=== PATIENT | male | born 1960 | race Caucasian/White ===

== ENCOUNTER 2018-09-10 09:37 | Inpatient (IN) | payer SELFPAY ==
[~2018-09-10] VITALS: Ht 182.9 cm; Wt 126.6 kg
--- NOTE | 2018-09-10 09:46 | NUR ---
PT BIB RA [facility] FROM HOME, GLF BECAUSE OF WEAKNESS, PT IS AAOX4, NOT IN RESPIRATORY DISTRESS, HOOKED TO MONITOR, KEPT RESTED AND COMFORTABLE, WILL CONTINUE TO MONITOR.
--- NOTE | 2018-09-10 09:50 | NUR ---
IV LINE ESTABLISHED, BLOOD DRAWNED AND SENT TO LAB.
--- NOTE | 2018-09-10 09:57 | NUR ---
DR. EPSTEIN AT BEDSIDE FOR EVAL.
[2018-09-10 10:15] LABS: BASOPHILS % (AUTO) 0.7 % (0.0-2.0); EOSINOPHILS % (AUTO) 0.6 % (0.0-6.0); HEMOGLOBIN 7.3 g/dL (13.5-17.5); LYMPHOCYTES # (AUTO) 0.9 /CMM (0.8-4.8); LYMPHOCYTES % (AUTO) 13.4 % (20.0-44.0); MEAN CORPUSCULAR HGB CONC 36 g/dl (31.0-36.0); MEAN CORPUSCULAR VOLUME 114 fL (80-96); MONOCYTES # (AUTO) 0.8 /CMM (0.1-1.30); NEUTROPHILS # (AUTO) 4.7 /CMM (1.8-8.9); NEUTROPHILS % (AUTO) 72.3 % (43.0-81.0); PLATELET COUNT (AUTO) 73 /CMM (150-450); WHITE BLOOD COUNT (AUTO) 6.5 K/uL (4.3-11.0)
[2018-09-10 10:18] LABS: RED BLOOD CELL COUNT(AUTO) 1.75 MIL/uL (4.5-6.0)
[2018-09-10] MEDS ORDERED: MORPHINE SULFATE INJ 4 MG/ML DISP.SYRIN ONE (10:18)
[2018-09-10 10:19] LABS: HEMATOCRIT 20 % (39-51)
--- NOTE | 2018-09-10 10:20 | NUR ---
PT IS WHEELED TO CT SCAN VIA [facility].
[2018-09-10 10:24] LABS: CALCIUM, SERUM 9.2 mg/dL (8.5-10.1); CARBON DIOXIDE 26 mmol/L (21-32); CHLORIDE 102 mmol/L (98-107); CREATININE 1.5 mg/dL (0.6-1.3); GLUCOSE 102 mg/dL (74-106); POTASSIUM 3.6 mmol/L (3.5-5.1); SODIUM SERUM 137 mmol/L (136-145); UREA NITROGEN, BLOOD 28 mg/dL (7-18)
[2018-09-10] MEDS ORDERED: MORPHINE SULFATE INJ 2 MG/ML DISP.SYRIN IV ONE (10:30)
[2018-09-10 10:35] LABS: SERUM AMMONIA 84 umol/L (11-32)
[2018-09-10 10:43] LABS: ALANINE AMINOTRANSFERASE 20 U/L (12-78); ALBUMIN 1.6 g/dL (3.4-5.0); ALCOHOL, BLOOD < 3 mg/dL (0-0); ALKALINE PHOSPHATASE 80 U/L (46-116); ASPARTATE AMINOTRANSFERASE 50 U/L (15-37); BILIRUBIN,DIRECT 4.4 mg/dL (0.0-0.2); BILIRUBIN,TOTAL 12.2 mg/dL (0.2-1.0)
[2018-09-10] MEDS ORDERED: FURO40TA5 PO (10:46)
[2018-09-10] MEDS ORDERED: SPIR100T5 PO (10:46)
--- NOTE | 2018-09-10 10:55 | NUR ---
TECH AT BEDSIDE FOR US.
[2018-09-10 11:05] LABS: LYMPHOCYTES % (MANUAL) 6 % (16-48); MONOCYTES % (MANUAL) 9 % (0-11.0); NEUTROPHILS % (MANUAL) 85 (42-76)
--- NOTE | 2018-09-10 12:00 | NUR ---
TELE BED 315-2
--- NOTE | 2018-09-10 12:25 | NUR ---
REPORT GIVEN TO SYLVAIN KATHLEEN FOR WENDY.
[2018-09-10] MEDS ORDERED: LACTULOSE 10 G/15 ML UDC (PYXIS) PO PRN (13:00)
--- NOTE | 2018-09-10 13:04 | NUR ---
PAGED ROSALIE SHEN
[2018-09-10] MEDS ORDERED: MAGNESIUM HYDROXIDE 30 ML UDC PO PRN (13:30)
[2018-09-10] MEDS ORDERED: Z GUARD REMEDY 2 OZ OINT TP PRN (13:30)
[2018-09-10] MEDS ORDERED: ONDANSETRON HCL/PF 4 MG/2 ML VIAL IVP PRN (13:30)
[2018-09-10] MEDS ORDERED: MAG HYDROX/AL HYDROX/SIMETH 30 ML UDC PO PRN (13:30)
[2018-09-10] MEDS ORDERED: FUROSEMIDE 20 MG/2 ML VIAL IV SCH (13:30)
[2018-09-10] MEDS ORDERED: FUROSEMIDE 40 MG/4 ML VIAL ONE (13:34)
[2018-09-10] MEDS: LACTULOSE 10 G/15 ML UDC (PYXIS) PO SCH ×2 (13:49→18:54)
[2018-09-10 15:24] LABS: APPEARANCE,URINE SL CLOUDY (CLEAR); BILIRUBIN,URINE 2+ (NEGATIVE); BLOOD, URINE 3+ Ery/uL (NEGATIVE); COLOR,URINE BROWN (YELLOW); KETONES,URINE TRACE (NEGATIVE); LEUKOCYTE ESTERASE ,URINE TRACE (NEGATIVE); NITRITE, URINE NEGATIVE (NEGATIVE); PROTEIN,URINE TRACE mg/dl (NEGATIVE); UGLUCOSE NEGATIVE (NEGATIVE)
--- NOTE | 2018-09-10 15:34 | NUR ---
MS NARAYAN NOTES Called pharmacy and followed up on Albumin IV. Spoke to Heidi. MARQUIS on the way. Addendum: 09/10/18 at 1628 by OTIS LOPEZ RN Received medications. Will administer now
[2018-09-10 15:42] LABS: CREATININE, URINE 51.7 MG/DL (30.0-125.0)
[2018-09-10 15:44] LABS: BACTERIA,URINE Few /HPF (None Seen); RBC,URINE 51-80 /HPF (0-2); SQUAMOUS EPITHELIAL CELL,UR None Seen /HPF (None Seen); WBC,URINE 0-2 /HPF (0-3)
--- NOTE | 2018-09-10 15:45 | NUR ---
MS RN NOTES Reported 2nd draw critical labs results to Storm Nielsen with new order to consult with Hematology. Dr. Miller came to assess and interview patient.
[2018-09-10 16:00] VITALS: BP 123/59
[2018-09-10] MEDS: FUROSEMIDE 40 MG/4 ML VIAL IV SCH (16:32)
[2018-09-10] MEDS: ALBUMIN 25% 25 GM in PREMIX 1 EA IV SCH ×2 (16:32→21:30)
--- NOTE | 2018-09-10 16:32 | NUR ---
MS RN NOTES BP 134/97
[2018-09-10 17:03] LABS: EOSINOPHIL,URINE None Seen
[2018-09-10] MEDS ORDERED: diphenhydrAMINE HCL 50 MG/ML VIAL IV ONE (18:00)
[2018-09-10] MEDS ORDERED: ACETAMINOPHEN 325 MG TABLET PO ONE (18:00)
[2018-09-10] MEDS ORDERED: PHYTONADIONE INJ 10 MG/1 ML AMPUL SQ ONE (18:00)
[2018-09-10] MEDS: FOLIC ACID 1 MG TABLET PO SCH (18:57)
--- NOTE | 2018-09-10 19:00 | NUR ---
RN MS OPENING NOTES RECEIVED PATIENT IN BED AWAKE ALERT AND ORIENTED X3, RESPIRATIONS EVEN AND UNLABORED WITH EQUAL RISE AND FALL OF CHEST, DENIES ANY PAIN OR DISCOMFORT AT THIS TIME, S/B ID MD CERDA, WITH NEW ORDERS FOR ABX, ALSO S/B MD OAKLEY WITH NEW ORDER TO TRANSFUSE 4 FFP. EXPLAINED TO FAMILY AND PATIENT , BOTH AGREED CONSENTS SIGNED. ASPIRATION PRECAUTIONS IN PLACE, NPO STATUS AT THIS TIME, NOTED BLE EDEMA NON PITTING, NOTES SKIN JUANDICED COLORED, URINAL AT BEDSIDE WITHIN REACH, RIGHT AC #20 G INTACT AND PATENT, NO REDNESS, NO INFILTRATION PRESENT,SAFETY PRECAUTIONS IN PLACE, LOW BED AND LOCKED, ORIENTED TO STAFF AND CALL LIGHT AND KEPT WITHIN REACH, ALL NEEDS ATTENDED AT THIS TIME, WILL CONTINUE TO MONITOR AND ATTEND TO NEEDS.
--- NOTE | 2018-09-10 19:17 | NUR ---
MS RN CLOSING NOTES Patient remained in bed, awake, comfortable. Complaints of pain but tolerable. All due meds given and tolerated. Not in any type of distress. Hematology consult done by Dr. Miller with new orders of FFP x4 units, tylenol and benadryl prior to transfusion, and Vitamin K. Swallow eval tomorrow for aspiration precaution. IV access: patent and intact. Family member at bedside. Kept patient clean, dry and comfortable. Safety measures in place. Bed in lowest position with bed alarm on and call light within reach. Endorsed to oncoming shift nurse
[2018-09-10 20:00] VITALS: BP 123/60
[2018-09-10] MEDS ORDERED: CEFTRIAXONE 1 G in IV D5W 50 ML IV SCH (20:00)
[2018-09-10] MEDS: CEFEPIME 1 GM in IV D5W 50 ML IV SCH (20:35)
[2018-09-10] MEDS ORDERED: diphenhydrAMINE HCL 50 MG/ML VIAL ONE (22:47)
[2018-09-10 23:22] VITALS: BP 122/53
[2018-09-10 23:37] VITALS: BP 112/60
[2018-09-10 23:52] VITALS: BP 113/53
[2018-09-11] VITALS (16 sets, daily range): BP systolic 105–136; BP diastolic 49–78
[2018-09-11] MEDS: LACTULOSE 10 G/15 ML UDC (PYXIS) PO SCH ×4 (01:56→19:33)
[2018-09-11] MEDS: ACETAMINOPHEN 325 MG TABLET PO PRN ×4 (04:07→23:27)
--- NOTE | 2018-09-11 04:08 | NUR ---
MS RN NOTES PATIENT C/O PAIN TO BLE REQUESTED FOR PAIN MEDICATION , PRN OFFERED TYLENOL PATIENT AGREED, PRN GIVEN ORDERED, BLE REPOSITIONED FLOATED WILL CONTINUE TO MONITOR FOR EFFECTIVENESS.
--- NOTE | 2018-09-11 04:21 | NUR ---
RN MS NOTES FFP INFUSION COMPLETE 4 FFP GIVEN ORDERED BY . NO ADVERSE REACTIONS THROUGHOUT INFUSIONS, REMAINED STABLE AND AFEBRILE THROUGHOUT FFP TRANSFUSION.
[2018-09-11] MEDS: ALBUMIN 25% 25 GM in PREMIX 1 EA IV SCH (05:31)
--- NOTE | 2018-09-11 06:52 | NUR ---
RN MS CLOSING NOTES PATIENT IN BED AWAKE ALERT AND ORIENTED X3, RESPIRATIONS EVEN AND UNLABORED WITH EQUAL RISE AND FALL OF CHEST, DENIES ANY PAIN OR DISCOMFORT AT THIS TIME, TRANSFUSE 4 FFP ORDERED PER , NO ADVERSE REACTION THROUGHOUT INFUSIONS ,. ASPIRATION PRECAUTIONS IN PLACE, NPO STATUS AT THIS TIME, NOTED BLE EDEMA NON PITTING, ELEVATED WITH PILLOWS NOTES SKIN JAUNDICED COLORED, URINAL AT BEDSIDE WITHIN REACH, RIGHT AC #20 G INTACT AND PATENT, NO REDNESS, NO INFILTRATION PRESENT,SAFETY PRECAUTIONS IN PLACE, LOW BED AND LOCKED, CALL LIGHT AND KEPT WITHIN REACH, ALL NEEDS ATTENDED AT THIS TIME, WILL CONTINUE TO MONITOR AND ATTEND TO NEEDS AND ENDORSE TO NEXT SHIFT, PATIENT REFUSED LAB DRAW AT THIS TIME.
--- NOTE | 2018-09-11 07:26 | NUR ---
MS RN OPENING NOTES: RECEIVED PT AWAKE IN BED IN NO ACUTE SIGNS OF DISTRESS. A/O X3. VERBALLY RESPONSIVE, DENIES PAIN OR ANY DISCOMFORTS AT THIS TIME. NPO STATUS MAINTAINED. PT REMAINS WITH JAUNDICE SKIN. ON ROOM AIR, RESPIRATIONS EVEN AND UNLABORED. IV ACCESS ON RAC INTACT AND PATENT, NO S/S OF INFILTRATIONS NOTED AT SITE. SAFETY MEASURES IN PLACE. HOB ELEVATED. BED IN LOW, LOCKED POSITION WITH SIDE RAILS X 2UP. CALL LIGHT WITHIN REACH. WILL REORIENT PRN. WILL CONTINUE TO MONITOR.
[2018-09-11] MEDS: CEFEPIME 1 GM in IV D5W 50 ML IV SCH ×2 (07:56→19:55)
[2018-09-11] MEDS: FUROSEMIDE 40 MG/4 ML VIAL IV SCH ×2 (08:27→17:54)
[2018-09-11 08:51] LABS: BASOPHILS % (AUTO) 0.4 % (0.0-2.0); EOSINOPHILS % (AUTO) 0.9 % (0.0-6.0); LYMPHOCYTES # (AUTO) 0.5 /CMM (0.8-4.8); LYMPHOCYTES % (AUTO) 11.7 % (20.0-44.0); MEAN CORPUSCULAR HGB CONC 36 g/dl (31.0-36.0); MEAN CORPUSCULAR VOLUME 113 fL (80-96); MONOCYTES # (AUTO) 0.6 /CMM (0.1-1.30); MONOCYTES % (AUTO) 14.9 % (2.0-12.0); NEUTROPHILS # (AUTO) 3.1 /CMM (1.8-8.9); NEUTROPHILS % (AUTO) 72.1 % (43.0-81.0); WHITE BLOOD COUNT (AUTO) 4.3 K/uL (4.3-11.0)
[2018-09-11] MEDS: FOLIC ACID 1 MG TABLET PO SCH (09:00)
[2018-09-11] MEDS: SPIRONOLACTONE 25 MG TABLET PO SCH (09:00)
[2018-09-11] MEDS ORDERED: FUROSEMIDE 20 MG/2 ML VIAL IV SCH (09:00)
--- NOTE | 2018-09-11 09:03 | NUR ---
RN NOTES PATIENT FOR US GUIDED PARACENTESIS PER MD ORDER. PROCEDURE EXPLAINED TO PT AND PT'S SISTER AT BEDSIDE, BOTH VERBALIZED UNDERSTANDING. CONSENT SIGNED BY PT'S SISTER SHAWN TANNER.
--- NOTE | 2018-09-11 09:26 | NUR ---
RN NOTES PATIENT SEEN BY GI DR GONZALEZ WITH ORDER TO GIVE LACTULOSE 20 G Q6H AND INCREASE DOSE IF PT DOESN'T DO BOWEL MOVEMENT. ALSO ORDERED TO GIVE FOOD PT ONCE HE PASS SWALLOW EVALUATION.
[2018-09-11 09:34] LABS: RED BLOOD CELL COUNT(AUTO) 1.51 MIL/uL (4.5-6.0)
[2018-09-11 09:38] LABS: HEMATOCRIT 17 % (39-51); HEMOGLOBIN 6.2 g/dL (13.5-17.5)
[2018-09-11 09:39] LABS: PLATELET COUNT (AUTO) 49 /CMM (150-450)
[2018-09-11 09:49] LABS: IRON, SERUM 74 ug/dl (50-175); TOTAL IRON BINDING CAPACITY 115 ug/dl (250-450)
--- NOTE | 2018-09-11 09:57 | NUR ---
RN NOTES RECEIVED CALL FROM MULTI CRAFT MAINTENANCE TECHNICIAN MAURO AND INFORMED THAT PT HAS CRITICAL LOW VALUES OF HGB 6.2, HCT 17 AND PLATELET 49. STUDENT SERVICES VICE PRESIDENT AC ON UNIT AND MADE AWARE WITH ORDER TO INFUSE 1 BAG OF PRBC AND NPO EXCEPT MEDS. WILL CONTINUE TO MONITOR.
[2018-09-11 10:20] LABS: FERRITIN 487 ng/mL (8-388)
[2018-09-11 10:25] LABS: ALBUMIN 2.6 g/dL (3.4-5.0); BILIRUBIN,DIRECT 4.5 mg/dL (0.0-0.2); BILIRUBIN,TOTAL 12.9 mg/dL (0.2-1.0); CALCIUM, SERUM 9.6 mg/dL (8.5-10.1); CREATININE 1.3 mg/dL (0.6-1.3); PHOSPHORUS 3.1 mg/dL (2.5-4.9); POTASSIUM 3.3 mmol/L (3.5-5.1); TOTAL PROTEIN, SERUM 6.7 g/dL (6.4-8.2)
[2018-09-11 10:40] LABS: MAGNESIUM 1.2 mg/dL (1.8-2.4)
[2018-09-11 10:43] LABS: THYROID STIMULATING HORMONE 0.583 uIU/mL (0.358-3.74)
--- NOTE | 2018-09-11 11:19 | NUR ---
RN NOTES/PAIN MANAGEMENT PATIENT COMPLAINED OF ACHING PAIN ON HIS RIGHT LOWER LEG. [employer]ER [employer] AC ON UNIT AND ASKED IF IT'S OK TO GIVE TYLENOL BECAUSE OF PT'S LIVER PROBLEM AND SAID "YES". PRN TYLENOL 650 MG PO GIVEN AT 1117. WILL CONTINUE TO MONITOR.
--- NOTE | 2018-09-11 11:44 | NUR ---
RN NOTES FOLLOWED-UP WITH BLOOD BANK IF PT'S 1 BAG OF PRBC IS ALREADY READY AND SAID THAT SOON IT'S AVAILABLE, THEY WILL CALL ME. LL F/U.
[2018-09-11 13:57] LABS: D-DIMER 4.12 mg/L(FEU (0.17-0.50)
--- NOTE | 2018-09-11 13:57 | NUR ---
RN NOTES PATIENT STARTED ON BLOOD TRANSFUSION OF 1 BAG PRBC 292 ML VIA IV ACCESS ON RAC. PRE V/S CHSCKED: BP 114/51, R 18, P 92 AND T 98.5F. WILL MONITOR FOR ANY ADVERSE REACTIONS.
--- NOTE | 2018-09-11 14:24 | NUR ---
RN NOTES PATIENT WITH NO ADVERSE REACTION AFTER 15MINS OF STARTING BLOOD TRANSFUSION. NO FEVER, RASHES OR DIFFICULTY BREATHING NOTED. WILL CONTINUE TO MONITOR.
[2018-09-11] MEDS ORDERED: LACTULOSE UDC 200 G in SODIUM CHLORIDE IRRIG SOLUTION 400 ML IR ONE (15:00)
[2018-09-11 15:47] LABS: BAND % (MANUAL) 1 % (0.0-5.0); LYMPHOCYTES % (MANUAL) 10 % (16-48); MONOCYTES % (MANUAL) 10 % (0-11.0); NEUTROPHILS % (MANUAL) 78 (42-76)
[2018-09-11 15:48] LABS: EOSINOPHILS % (MANUAL) 1 % (0-4)
--- NOTE | 2018-09-11 15:59 | NUR ---
RN NOTES RECEIVED CALL FROM CORE OVEN TENDER ARTUR THAT PT'S FIBRINOGEN IS LOW 60, INFORMED MARCELL SHEN AND DR OAKLEY ON UNIT AND MADE AWARE. ORDERS MADE. WILL CARRY OUT ORDER AND CONTINUE TO MONITOR PT.
--- NOTE | 2018-09-11 16:51 | NUR ---
RN NOTES BLOOD TRANSFUSION OF 1 BAG PRBC 292 ML FINISHED, NO ADVERSED REACTIONS NOTED. V/S STABLE AND RECORDED. WILL CONTINUE TO MONITOR.
[2018-09-11] MEDS ORDERED: ACETAMINOPHEN 325 MG TABLET PO ONE (18:00)
[2018-09-11] MEDS ORDERED: diphenhydrAMINE HCL 50 MG/ML VIAL IV ONE ×2 (18:00→23:15)
--- NOTE | 2018-09-11 18:18 | NUR ---
RN NOTES PT ADMINISTERED LACTULOSE 200MG IN NS SOLUTION RECTALLY X1 DOSE. PT HAD LARGE DARK BROWNISH WATERY BOWEL MOVEMENT X1 AT THIS TIME. WILL CONTINUE TO MONITOR.
--- NOTE | 2018-09-11 19:09 | NUR ---
MS RN CLOSING NOTES: PT AWAKE IN BED PLAYING WITH HIS CELLPHONE. SISTER AT BEDSIDE. A/O X3. VERBALLY RESPONSIVE. PT REMAINS WITH JAUNDICE SKIN AND ABDOMEN DISTENDED. ON ROOM AIR, TOLERATING WELL WITH NO SOB NOTED. IV ACCESS ON RAC INTACT AND PATENT, NO S/S OF INFILTRATIONS NOTED AT SITE. ALL NEEDS AND CARE ATTENDED WELL. ALL SAFETY MEASURES KEPT IN PLACE. HOB ELEVATED. BED IN LOW, LOCKED POSITION WITH SIDE RAILS X 2UP. CALL LIGHT WITHIN REACH. WILL ENDORSE TO FEATHER MAKER NURSE FOR WENDY.
--- NOTE | 2018-09-11 19:30 | NUR ---
RN MS OPENING NOTES RECEIVED PATIENT IN BED AWAKE, ALERT AND ORIENTED X2-3, SOMEWHAT CONFUSED. FAMILY AT BEDSIDE. BREATHING EVEN AND UNLABORED. NO SOB NOTED. TOLERATING ROOM AIR. CURRENTLY WITH NO COMPLAINTS OF PAIN OR DISCOMFORT. NO FACIAL GRIMACING. IV ON RIGHT AC INTACT AND PATENT. SKIN DRY AND WARM TO TOUCH. AFEBRILE. JAUNDICED IN SKIN COLOR. PATIENT NOTED WITH DISTENDED ABDOMEN. PER DAY NURSE, PATIENT WITH ORDERS FOR CRYOPRECIPITATE (2 BAGS). WILL FOLLOW-UP WITH LAB. ALL OTHER NEEDS ATTENDED TO. SAFETY MEASURES IN PLACE. CALL LIGHT WITHIN REACH. WILL CONTINUE TO MONITOR.
--- NOTE | 2018-09-11 20:00 | NUR ---
RN MS NOTES INFORMED PATIENT THAT I WOULD NEED TO DO ANOTHER TRANSFUSION (CRYOPRECIPITATE). PER PATIENT HE NEEDS HIS TYLENOL. TYLENOL WAS GIVEN AT 1830. TOLD PATIENT THAT I CAN DO THE TRANSFUSION NOW SINCE HIS TYLENOL HAS ALREADY BEEN GIVEN. PATIENT STILL DEMANDS TYLENOL SO HE CAN FEEL "COMFORTABLE" DURING THE TRANSFUSION. OFFERED TO DO THE TRANSFUSION WHEN TYLENOL IS NEXT DUE WHICH IS AT 00:30. PATIENT AGREED. WILL JUST CALL BLOOD BANK WHEN PATIENT IS READY.
--- NOTE | 2018-09-11 22:30 | NUR ---
RN MS NOTES INFORMED DR. LOZANO ABOUT PATIENT REQUESTING FOR TYLENOL PRIOR TO CRYOPRECIPITATE TRANSFUSION EVEN THOUGHT PATIENT JUST RECEIVED IT AT 1830. PER DR. LOZANO OK TO GIVE 2 HOURS EARLY. WILL CONTINUE TO MONITOR.
--- NOTE | 2018-09-11 23:16 | NUR ---
RN MS NOTES REQUESTED FROM DR. LOZANO IF OK TO RENEW THE ONE TIME DOSE OF BENADRYL 25MG IV PRIOR TO TRANSFUSION. UNABLE TO TAKE OUT OF OMNICELL SINCE TIME HAS PASSED. PER DR. LOZANO, OK TO RENEW ORDER. ORDER NOTED AND CARRIED OUT.
[2018-09-12] VITALS (21 sets, daily range): BP systolic 110–146; BP diastolic 56–98
--- NOTE | 2018-09-12 00:20 | NUR ---
RN MS NOTES CRYOPRECIPITATE TRANSFUSION STARTED.
--- NOTE | 2018-09-12 00:33 | NUR ---
RN MS NOTES PATIENT TOLERATING CRYOPRECIPITATE WELL. VSS. NOT IN ANY DISTRESS. WILL CONTINUE TO MONITOR.
--- NOTE | 2018-09-12 00:43 | NUR ---
RN MS NOTES SECOND BAG OF CRYPRECIPITATE STARTED. VSS. PATIENT NOT IN ANY DISTRESS. WILL CONTINUE TO MONITOR.
--- NOTE | 2018-09-12 01:39 | NUR ---
RN MS NOTES PATIENT IS S/P CRYPRECIPITATE 5UNITS X2 BAGS. PATIENT IN STABLE CONDITION. NO ADVERSE EFFECTS NOTED. VSS. WILL CONTINUE TO MONITOR.
--- NOTE | 2018-09-12 01:40 | NUR ---
RN MS NOTES WENDY TRANSFERRED TO SYLVAIN HUYNH. PATIENT IN STABLE CONDITION.
--- NOTE | 2018-09-12 01:40 | NUR ---
Transfer of care Receive report from night baker RN for WENDY. pt a/o x3, stable no s/s of distress. asleep and easily awaken. will cont to mtr
[2018-09-12] MEDS: LACTULOSE 10 G/15 ML UDC (PYXIS) PO SCH ×4 (01:55→19:30)
--- NOTE | 2018-09-12 06:19 | NUR ---
MS RN ASLEEP AND EASILY AWAKEN, RESPIRATIONS EVEN AND UNLABORED. STABLE, SLEPT WELL THROUGHOUT THE NIGHT. KEPT CLEAN AND DRY AND COMFORTABLE. NEEDS ATTENDED AND ANTICIPATED. NURSING CARE RENDERED, SAFETY MEASURES AT ALL TIMES. ENDORSE TO THE NEXT SHIFT.
[2018-09-12 06:21] LABS: BASOPHILS % (AUTO) 0.1 % (0.0-2.0); EOSINOPHILS % (AUTO) 1.1 % (0.0-6.0); LYMPHOCYTES # (AUTO) 0.7 /CMM (0.8-4.8); LYMPHOCYTES % (AUTO) 9.3 % (20.0-44.0); MEAN CORPUSCULAR HGB CONC 36 g/dl (31.0-36.0); MEAN CORPUSCULAR VOLUME 110 fL (80-96); MONOCYTES # (AUTO) 0.9 /CMM (0.1-1.30); MONOCYTES % (AUTO) 11.1 % (2.0-12.0); NEUTROPHILS # (AUTO) 6.2 /CMM (1.8-8.9); NEUTROPHILS % (AUTO) 78.4 % (43.0-81.0); WHITE BLOOD COUNT (AUTO) 7.9 K/uL (4.3-11.0)
[2018-09-12 06:36] LABS: ALBUMIN 2.1 g/dL (3.4-5.0); BILIRUBIN,TOTAL 11.9 mg/dL (0.2-1.0); CALCIUM, SERUM 9.2 mg/dL (8.5-10.1); CREATININE 1.5 mg/dL (0.6-1.3); PHOSPHORUS 2.8 mg/dL (2.5-4.9); TOTAL PROTEIN, SERUM 6.1 g/dL (6.4-8.2)
[2018-09-12 06:47] LABS: MAGNESIUM 1.2 mg/dL (1.8-2.4)
[2018-09-12 06:54] LABS: RED BLOOD CELL COUNT(AUTO) 1.74 MIL/uL (4.5-6.0)
[2018-09-12 06:58] LABS: HEMATOCRIT 19 % (39-51); PLATELET COUNT (AUTO) 49 /CMM (150-450)
--- NOTE | 2018-09-12 07:06 | NUR ---
PAGED HOSPITALIST FOR CRITICAL VALUE LAB AWAITING CALL BACK
--- NOTE | 2018-09-12 07:24 | NUR ---
HOSPITALIST CALLED BACK RELAYED CRITICAL LAB RESULTS NO NEW ORDER PER MS. [facility] CAN REPLACE THE LYTES ENDORSE TO AM RN NURSE
--- NOTE | 2018-09-12 07:41 | NUR ---
RN MS OPENING NOTES Patient received on room air, no sob noted. Pt remains a/o x3. patient shows no s/s of pain at this time. RAC #20 gauge remains patent. bed at the lowest setting, call light within reach.
[2018-09-12] MEDS ORDERED: POTASSIUM CHLORIDE 20 MEQ TAB.PRT.SR PO ONE (08:30)
[2018-09-12] MEDS: Magnesium 1GM/D5W 100ML PREMIX 100 ML IV SCH ×4 (08:30→11:30)
[2018-09-12] MEDS: SPIRONOLACTONE 25 MG TABLET PO SCH (08:52)
[2018-09-12] MEDS: FUROSEMIDE 40 MG/4 ML VIAL IV SCH ×2 (08:53→16:33)
[2018-09-12] MEDS: FOLIC ACID 1 MG TABLET PO SCH (08:53)
[2018-09-12] MEDS: ACETAMINOPHEN 325 MG TABLET PO PRN ×2 (08:59→20:34)
[2018-09-12] MEDS: CEFEPIME 1 GM in IV D5W 50 ML IV SCH ×2 (09:07→20:29)
[2018-09-12 09:38] LABS: D-DIMER 3.99 mg/L(FEU (0.17-0.50)
[2018-09-12 10:23] LABS: EOSINOPHILS % (MANUAL) 2 % (0-4); LYMPHOCYTES % (MANUAL) 5 % (16-48); MONOCYTES % (MANUAL) 9 % (0-11.0); NEUTROPHILS % (MANUAL) 84 (42-76)
--- NOTE | 2018-09-12 18:11 | NUR ---
RN MS CLOSING NOTES Patient remains on room air, no sob noted, no s/s of pain at this time. Patient received 2 units of FFP earlier in the shift, receiving 2 ffp units again. Right AC #20 remains patent, unobstructed. Patient refused pt eval today. Bed at the lowest setting, call light within reach. Will give report to NOC RN for WENDY bedside.
--- NOTE | 2018-09-12 19:25 | NUR ---
RN OPENING NOTES RECEIVED PATIENT AWAKE, RESTING IN BED. PATIENT IS A/O X 3. DAUGHTER AT BEDSIDE. PATIENT DENIES PAIN AT THIS TIME. NO SIGNS OF RESPIRATORY DISTRESS. PATIENT DENIES SOB. IV SITE PATENT. TRANSFUSION IS RUNNING AT THIS TIME. WILL CONTINUE TO MONITOR VITALS. SAFETY PRECAUTIONS IMPLEMENTED; CALL LIGHT WITHIN REACH, BED LOCKED, BED IN LOWEST POSITION, BED LOCKED, SIDERAILS UP X2.
[2018-09-12 20:40] LABS: *SPE A/G RATIO 0.4 (0.7-1.7); *SPE ALBUMIN 2.2 g/dL (2.9-4.4); *SPE ALPHA-1-GLOBULIN 0.1 g/dL (0.0-0.4); *SPE ALPHA-2-GLOBULIN 0.4 g/dL (0.4-1.0); *SPE BETA GLOBULIN 1.2 g/dL (0.7-1.3); *SPE GLOBULIN, TOTAL 4.9 g/dL (2.2-3.9); *SPE M-SPIKE Not Observed g/dL (Not Observed); *SPEGAMMA GLOBULIN 3.1 g/dL (0.4-1.8); PTH, INTACT 46 pg/mL (15-65)
--- NOTE | 2018-09-12 21:00 | NUR ---
RN NOTES PATIENT REFUSED BLOOD DRAW FOR 2100. LAB PERSON WILL ATTEMPT LATER.
--- NOTE | 2018-09-12 21:00 | NUR ---
RN NOTES NO REACTION TO TRANSFUSION. VITALS STABLE.
[2018-09-13] MEDS: LACTULOSE 10 G/15 ML UDC (PYXIS) PO SCH ×3 (00:48→12:29)
--- NOTE | 2018-09-13 02:50 | NUR ---
RN NOTES PATIENT STATES HE STILL REFUSES BLOOD DRAW TO F/U ON LABS. EDUCATED PATIENT ON RISKS AND BENEFITS AND PATIENT STILL REFUSES.
[2018-09-13] MEDS: ACETAMINOPHEN 325 MG TABLET PO PRN (03:11)
--- NOTE | 2018-09-13 06:41 | NUR ---
RN CLOSING NOTES PATIENT IS RESTING COMFORTABLY IN BED. NO SIGNS OF RESPIRATORY DISTRESS. PATIENT DENIES SOB. PATIENT DENIES PAIN AT THIS TIME. PATIENT RECEIVED TRANSFUSION EARLIER IN THE SHIFT, CONTINUED FROM AM SHIFT. IV SITE RAC REMAINS PATENT, INTACT, AND UNOBSTRUCTED. PATIENT REFUSED LAB DRAW LAST NIGHT. PATIENT ACCEPTED BLOOD DRAW IN AM, BUT ORTHODONTIC LABORATORY TECHNICIAN HAD DIFFICULTY DRAWING BLOOD. ORTHODONTIC LABORATORY TECHNICIAN STATES THEY WILL RETAKE LATER. PATIENT STABLE. KEPT CLEAN, DRY, AND COMFORTABLE. ALL NEEDS ATTENDED TO. SAFETY PRECAUTIONS IMPLEMENTED; CALL LIGHT WITHIN REACH, BED LOW, BED LOCKED, SIDE RAILS UP X2. WILL ENDORSE TO AM RN FOR CONTINUITY OF CARE.
--- NOTE | 2018-09-13 07:56 | NUR ---
M/S RN OPENING NOTES RECEIVED PT ON BED, A/O X 4 AND ABLE TO MAKE NEEDS KNOWN. RESPIRATION EVEN AND NON LABORED WITH NO PRESENCE OF ACUTE RESPIRATORY DISTRESS. ABD SOFT AND NON DISTENDED, URINAL ON BEDSIDE. PAIN SCALE OF 8/10 BUT PT STATED TOLERATED THE PAIN AND JUST FEELING COLD, ADJUSTED ROOM TEMP, GIVEN BLANKET AND STATED MORE COMFORTABLE. SKIN WARM TO TOUCH AND DRY. IV SITE AT RIGHT AC WITH NO S/SX OF INFILTRATION. ALL CONCERNS ATTENDED, PLACED CALL LIGHT WITHIN REACH. WILL CONTINUE TO MONITOR CARE.
[2018-09-13] MEDS: CEFEPIME 1 GM in IV D5W 50 ML IV SCH (08:10)
[2018-09-13] MEDS: FUROSEMIDE 40 MG/4 ML VIAL IV SCH (08:10)
[2018-09-13] MEDS: SPIRONOLACTONE 25 MG TABLET PO SCH (08:10)
[2018-09-13] MEDS: FOLIC ACID 1 MG TABLET PO SCH (08:10)
[2018-09-13 08:53] LABS: ALBUMIN 2.4 g/dL (3.4-5.0); BILIRUBIN,TOTAL 11.7 mg/dL (0.2-1.0); CALCIUM, SERUM 9.6 mg/dL (8.5-10.1); CREATININE 1.4 mg/dL (0.6-1.3); MAGNESIUM 1.4 mg/dL (1.8-2.4); PHOSPHORUS 2.6 mg/dL (2.5-4.9); POTASSIUM 3.5 mmol/L (3.5-5.1); TOTAL PROTEIN, SERUM 6.7 g/dL (6.4-8.2)
[2018-09-13 09:03] LABS: BASOPHILS % (AUTO) 0.3 % (0.0-2.0); EOSINOPHILS % (AUTO) 1.9 % (0.0-6.0); HEMATOCRIT 22 % (39-51); HEMOGLOBIN 7.8 g/dL (13.5-17.5); LYMPHOCYTES # (AUTO) 0.8 /CMM (0.8-4.8); MEAN CORPUSCULAR HGB CONC 36 g/dl (31.0-36.0); MEAN CORPUSCULAR VOLUME 111 fL (80-96); MONOCYTES # (AUTO) 0.7 /CMM (0.1-1.30); NEUTROPHILS # (AUTO) 5.7 /CMM (1.8-8.9); NEUTROPHILS % (AUTO) 76.8 % (43.0-81.0); PLATELET COUNT (AUTO) 57 /CMM (150-450); WHITE BLOOD COUNT (AUTO) 7.5 K/uL (4.3-11.0)
[2018-09-13 09:04] LABS: RED BLOOD CELL COUNT(AUTO) 1.95 MIL/uL (4.5-6.0)
[2018-09-13 10:21] LABS: EOSINOPHILS % (MANUAL) 1 % (0-4); LYMPHOCYTES % (MANUAL) 7 % (16-48); MONOCYTES % (MANUAL) 2 % (0-11.0); NEUTROPHILS % (MANUAL) 90 (42-76)
[2018-09-13] MEDS ORDERED: DOXY100C2 PO (10:41)
[2018-09-13] MEDS ORDERED: FOLI1TAB16 PO (10:41)
[2018-09-13] MEDS ORDERED: LACT10SO6 PO (10:41)
[2018-09-13] MEDS ORDERED: LEVO500T75 PO (10:41)
--- NOTE | 2018-09-13 10:48 | NUR ---
M/S RN NOTES PT REFUSED TO BE SEEN BY PT
[2018-09-13] MEDS: Magnesium 1GM/D5W 100ML PREMIX 100 ML IV SCH ×4 (10:57→14:28)
--- NOTE | 2018-09-13 13:17 | NUR ---
M/S RN NOTES PT SEEN BY ROSALIE FAITH. ORDER FOR DC AND INSTRUCTIONS POST DISCHARGE. PT VERBALIZED UNDERSTANDING
--- NOTE | 2018-09-13 16:48 | NUR ---
M/S ALARM OPERATOR NOTES PATIENT DISCHARGE TO HOME ACCOMPANIED BY FAMILY MEMBER, WHEELED OUT WITH [facility]. A/O X 4 AND ABLE TO MAKE NEEDS KNOWN. RESPIRATION EVEN AND NON LABORED WITH NO ACUTE RESPIRATORY DISTRESS. SKIN WARM TO TOUCH AND DRY, BLE +4 PITTING EDEMA. DENIES PAIN AND DISCOMFORT. IV SITE AT RIGHT AC REMOVED, TOLERATED WELL. EXIT CARE PROVIDED WITH PATIENT AND FAMILY MEMBER, FF UP WITH PHYSICIAN AND IMPORTANCE OF TAKING LACTULOSE AND PRESCRIBED ATB. ALL CONCERNS ATTENDED. PATIENT DC SAFE AND STABLE CONDITION.
== END 2018-09-13 17:15 | disposition home or self-care (01) | DRG 871 ==
LOC: ER 09:39 → MED 12:09
PROVIDERS: ADMIT Registered Nurse; ATTEND Registered Nurse
PROC: 30233K1 Transfusion of Nonautologous Frozen Plasma into Peripheral Vein, Percutaneous Approach (ICD-10-PCS; principal; 2018-09-10)
PROC: 30233P1 Transfusion of Nonautologous Frozen Red Cells into Peripheral Vein, Percutaneous Approach (ICD-10-PCS; 2018-09-11)
PROC: 30233M1 Transfusion of Nonautologous Plasma Cryoprecipitate into Peripheral Vein, Percutaneous Approach (ICD-10-PCS; 2018-09-12)
DX: A41.9 Sepsis, unspecified organism (principal); K65.2 Spontaneous bacterial peritonitis; J18.9 Pneumonia, unspecified organism; N17.0 Acute kidney failure with tubular necrosis; G92 Toxic encephalopathy; N39.0 Urinary tract infection, site not specified; D68.9 Coagulation defect, unspecified; R18.8 Other ascites; E87.2 Acidosis; E46 Unspecified protein-calorie malnutrition; K72.90 Hepatic failure, unspecified without coma; K74.60 Unspecified cirrhosis of liver; B19.20 Unspecified viral hepatitis C without hepatic coma; E80.6 Other disorders of bilirubin metabolism; B96.89 Other specified bacterial agents as the cause of diseases classified elsewhere; I89.0 Lymphedema, not elsewhere classified; D69.6 Thrombocytopenia, unspecified; E88.09 Other disorders of plasma-protein metabolism, not elsewhere classified; E66.01 Morbid (severe) obesity due to excess calories; Z68.37 Body mass index [BMI] 37.0-37.9, adult; Z91.81 History of falling; E83.42 Hypomagnesemia; E87.6 Hypokalemia; M25.469 Effusion, unspecified knee; R74.0 Nonspecific elevation of levels of transaminase and lactic acid dehydrogenase [LDH]
CPT/HCPCS: 36415; 70450-TC; 71045-TC; 73562; 76700-TC; 80048-TC; 80053-TC; 80061-TC; 80076-TC; 80305; 81000-TC; 82105; 82140-TC; 82550-TC; 82570-TC; 82728-TC; 82784; 83540-TC; 83605-TC; 83735-TC; 83970; 84100-TC; 84155; 84155-TC; 84165; 84300-TC; 84443-TC; 84484-TC; 85025-TC; 85396; 85610-TC; 85730-TC; 86334; 86850-TC; 86921-TC; 87040-TC; 87081-TC; 87522; 92526; 92611-TC; 93970-TC; A4216; G0378; G0480; J0692; J0696; J1200; J1940; J2270; J3430; J3475; J7050; J7060; P9012; P9016-BL; P9017-BL; P9047